=== PATIENT | female | born 1940 | race Caucasian/White ===

== ENCOUNTER 2017-12-17 09:32 | Emergency (ER) | payer MEDICARE, BC ==
[2017-12-17] MEDS ORDERED: HYDROcodone/Acetaminophen 5/325 mg Tablet ONE (10:12)
--- NOTE | 2017-12-17 11:19 | CT ---
CT PELVIS WITHOUT CONTRAST: Date: 12/17/17 HISTORY: Trauma. Fall. COMPARISON: None. FINDINGS: There are multiple hypodensities in the left lower abdomen, incompletely evaluated, although there is a comparison exam from 2001 which showed a similar appearance and this was from renal cystic origin. There is a chronic compression fracture at L4. There is narrowing at L3-4 and L4-5 spinous processes. There is circumferential disc bulge at L4-5 and L5-S1. No fracture is appreciated of the lower lumbar spine. No sacral fracture. Anterior and posterior colu mns are normal. There is narrowing of the pubic symphysis with erosions. There is what appears to be a healed left inferior pubic ramus fracture, series 2, image 63. No acute fracture is appreciated. No femoral head or neck fracture. Adequate acetabular coverage of the femor al heads. No fascial degloving injury. No muscle hematoma appreciated. IMPRESSION: 1. No acute fracture or malalignment of the pelvis. 2. Old left inferior pubic ramus fracture. 3. 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 4. Old L4 compression fracture. 5. Advanced degenerative disease between the L3-4 and L4-5 spinous processes. 6. Lobular hypodensities of the lower left hemiabdomen, which on the prior CT examination were felt to be renal cysts. 7. 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 POS: MELINA
== END 2017-12-17 11:00 | disposition home or self-care (01) ==
LOC: ERS 09:32
DX: S39.011A Strain of muscle, fascia and tendon of abdomen, initial encounter (principal); I10 Essential (primary) hypertension; M19.90 Unspecified osteoarthritis, unspecified site; K21.9 Gastro-esophageal reflux disease without esophagitis; K58.9 Irritable bowel syndrome, unspecified; Z87.891 Personal history of nicotine dependence; W19.XXXA Unspecified fall, initial encounter
CPT/HCPCS: 72192

== ENCOUNTER 2018-01-25 08:58 | Inpatient (IN) | payer MEDICARE, BC ==
[2018-01-25] MEDS ORDERED: Mag-Al 1200 mg/1200 mg/30 ML UDCUP ONE (09:16)
[2018-01-25] MEDS ORDERED: Lidocaine Viscous Sol 2% 15 ml UD Cup ONE (09:16)
[2018-01-25 09:20] LABS: #Basophils 0.1 thou/uL (0.0-0.2); #Eosinphils 0.1 thou/uL (0.0-0.7); #Lymphocytes 3.5 thou/uL (1.20-3.40); #Monocytes 0.9 thou/uL (0.11-0.59); #Neutrophils 4.2 thou/uL (1.40-6.50); %Basophils 1.5 % (0.0-1.0); %Eosinophils 1.6 % (0.0-10.0); %Lymphocytes 39.8 % (21.0-51.0); %Monocytes 9.8 % (0.0-10.0); %Neutrophils 47.3 % (42.0-75.0); Hemoglobin 14.1 g/dL (12.0-16.0); Mean Corpuscular HGB CONC 32.9 g/dL (32.0-36.0); Mean Corpuscular Hemoglobin 30.3 pg (27.0-31.0); Mean Corpuscular Volume 92.1 fl (81.0-99.0); Mean Platelet Volume 6.6 fL (7.4-10.4); Platelet Count 350 thou/uL (130-400); RBC Distribution Width 12.4 % (11.5-14.5); Red Blood Cell (RBC) Count 4.64 mill/uL (4.20-5.40); White Blood Cell (WBC) Count 8.9 thou/uL (4.8-10.8)
[2018-01-25 09:46] LABS: ALT (SGPT) 10 U/L (8-55); AST (SGOT) 17 U/L (5-34); Albumin 4.4 g/dL (3.4-4.8); Alkaline Phosphatase 132 U/L (40-150); BUN (Urea Nitrogen) 8 mg/dL (9.8-20.1); Bilirubin, Total 0.5 mg/dL (0.2-1.2); Calc. Creatinine Clearance 0 mL/min (70-130); Calcium 9.5 mg/dL (7.8-10.44); Carbon Dioxide 25 mmol/L (23-31); Estimated GFR-MDRD 66; Globulin 3.2 g/dL (2.4-3.5); Glucose 81 mg/dL (83-110); Lipase 15 U/L (8-78); Protein, Total 7.6 g/dL (6.0-8.3)
[2018-01-25 09:51] LABS: Troponin I Less than 0.010 ng/mL (< 0.028)
[2018-01-25] MEDS ORDERED: Nitroglycerin 2% Ointment 1 INCH/1 GM Packet ONE (10:05)
--- NOTE | 2018-01-25 10:10 | RAD ---
UPRIGHT PORTABLE CHEST 1 VIEW: HISTORY: A 77-year-old female with a history of chest pain. FINDINGS: Heart size is normal. There appear to be stable increased linear and interstitial markings and some linear parenchymal changes in the bases. Biapical pleural thickening. No confluent pneumonia or ove rt edema. Healed left rib fractures. IMPRESSION: Stable increased markings bilaterally and linear parenchymal changes in the bases. Stable biapical p leural thickening. Atherosclerosis of the aorta. No evidence of pneumonia or other active intrathor acic disease. POS: ASAEL
[2018-01-25] MEDS ORDERED: Fentanyl 100 MCG/2 ML VIAL ONE (11:55)
[2018-01-25] MEDS ORDERED: Ondansetron HCl/PF 4 MG/2 ML Vial IVP PRN (12:43)
[2018-01-25] MEDS ORDERED: Fentanyl 100 MCG/2 ML VIAL SLOW IVP PRN (12:43)
[2018-01-25] MEDS ORDERED: Sodium Chloride 0.9% 1,000 ML IV SCH ×2 (13:00→14:30)
[2018-01-25] MEDS ORDERED: Promethazine HCl 25 MG/ML VIAL IM/IV PRN (13:11)
[2018-01-25] MEDS ORDERED: hydrALAZINE 20 MG/ML VIAL SLOW IVP PRN ×2 (13:11→18:08)
[2018-01-25 13:20] LABS: Troponin I Less than 0.010 ng/mL (< 0.028)
[2018-01-25 13:24] VITALS: BMI 20.2
[2018-01-25] MEDS ORDERED: Prevnar 13-Val Conj/PF 0.5 ML SYRINGE IM ONE (13:45)
[2018-01-25] MEDS ORDERED: Acetaminophen 325 MG TAB PO PRN (15:15)
[2018-01-25] MEDS ORDERED: Nitroglycerin 0.4 MG TAB (25 Tab Bottle) PO PRN (15:15)
--- NOTE | 2018-01-25 15:25 | CT ---
CT BRAIN NONCONTRAST: Date: 01/25/18 HISTORY: 77-year-old female with altered mental status, hypertension, and gait abnormality. FINDINGS: There is no midline shift or any other mass effect. There is no evidence of acute intracranial hemor rhage, large cortical infarct, obstructive hydrocephalus, or extraaxial fluid collection. The calvar ium is intact. IMPRESSION: No acute intracranial findings. jn [] POS: [facility]
[2018-01-25] MEDS ORDERED: NS 0.9% w/ 40 MEQ KCL 1,000 ML IV SCH (15:30)
--- NOTE | 2018-01-25 15:31 | CON ---
DATE OF CONSULTATION: 01/25/2018 REASON FOR CONSULTATION: Chest pain. Please see Dr. Leslie's full consultation for details. Briefly, Ms. Mcnair is a very pleasant 77-year-old woman, no previous history of underlying coronary artery disease. She does have a remote tobacco history where she quit all tobacco products 3 years a go. She states she had acute onset chest pain. The pain has been constant, although improved over t he last 5 hours. This occurred while driving. She has no previous history of underlying coronary ar he disease. She has a previous history of WPW. CK and troponin so far have been negative. PHYSICAL EXAMINATION: GENERAL: Mildly slurred speech. VITAL SIGNS: Blood pressure 180/70, pulse 85, respirations 20. NEUROLOGIC: The patient is alert and oriented times 3 with no focal neurologic deficits. HEENT: Sclerae without icterus. Mouth has moist mucous membranes with normal pallor. NECK: No JVD. Carotid upstroke brisk. No bruits bilaterally. LUNGS: Clear to auscultation with unlabored respirations. BACK: No scoliosis or kyphosis. CARDIAC: Regular rate and rhythm with normal S1 and S2. No S3 or S4 noted. No significant rubs, mu rmurs, thrills, or gallops noted throughout the precordium. PMI is not displaced. There is no steffany ternal heave. ABDOMEN: Soft, nontender, nondistended. No peritoneal signs present. No hepatosplenomegaly. No ab normal striae. EXTREMITIES: 2+ femoral and 2+ dorsalis pedis pulses. No cyanosis, clubbing, or edema. SKIN: No gross abnormalities. PERTINENT LABORATORY DATA: Sodium 123, potassium 3.2, chloride 90. EKG: Normal sinus rhythm, nonsp ecific ST-T-wave changes. IMPRESSION: 1. Atypical chest pain. 2. Hyponatremia. 3. Mental status changes. RECOMMENDATIONS: Current etiology to her chest pain is unknown. Her symptoms are not felt to be wor se with deep breath. They are sharp in nature and constant. At this point, her CK, troponin, and EK G are negative. We will continue close observation. We will continue serial CKs and troponins. Ellen ology to a low sodium is unknown. Mental status change is likely related to phenergan. We will obta in a CT scan of the head for reassurance. Further recommendations on potassium and magnesium per [facility] team. May need a noninvasive stress study prior to discharge if symptoms continue.
--- NOTE | 2018-01-25 15:41 | HP ---
PRIMARY CARE PROVIDER: Shelley Pulliam M.D. CHIEF COMPLAINT: Chest pain. HISTORY OF PRESENT ILLNESS: Ms. Mcnair is a pleasant 77-year-old lady, who was seen at [facility] on 01/25/2018. She reports that, around 8:45 a.m., she was on her way to see her pain specialist. At that time, she developed pain over the left side of her chest. It was sharp, also heaviness like, 10/10, nonradiat ing, not accompanied by shortness of breath or nausea. She reports that it felt like indigestion as well as burning sensation. The pain improved gradually with time. She denies any recent [place] travel. She cannot recall any aggravating or relieving factors for the pain. She reports that she has been feeling generalized weakness over the last few days. REVIEW OF SYSTEMS: All other systems reviewed and found to be negative. 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 PAST SURGICAL HISTORY: None. SOCIAL HISTORY: The patient denies tobacco use, alcohol use, or recreational drug use. FAMILY HISTORY: Significant for an uncle with heart disease. ALLERGIES: MORPHINE. CURRENT MEDICATIONS: She takes medications for hypertension, but is unable to recall their names. T his will need to be clarified. PHYSICAL EXAMINATION: GENERAL: On examination, Ms. Mcnair is awake and alert, in mild distress. VITAL SIGNS: Blood pressure is 159/68, pulse is 79. She is breathing at rate of 18 and saturating 9 8% on room air. She is afebrile. EYES: No scleral icterus. No conjunctival pallor. ENT: Moist mucosal membranes. No oropharyngeal erythema or exudates. NECK: Supple, nontender, normal range of movement, trachea is midline. RESPIRATORY: Accessory muscles of breathing are not active. Chest wall movements are symmetric bila terally. LUNGS: Clear to auscultation without wheeze, rhonchi, or crepitations. CARDIOVASCULAR: S1 and S2 are heard, regular. Peripheral pulses palpable. No carotid bruit, no per icardial rub. ABDOMEN: Soft, nontender, bowel sounds heard, no hepatomegaly, no splenomegaly. NEUROLOGIC: Cranial nerves II-XII are intact. Deep tendon reflexes are 2+. MUSCULOSKELETAL: Power is 5/5 in all 4 extremities. Normal range of movement at all major extremity joints. LYMPHATIC: No cervical lymphadenopathy. SKIN: No rashes or subcutaneous nodules. PSYCHIATRIC: Normal mood, normal affect. The patient is oriented to person, place, and time. LABORATORY DATA: Ms. Mcnair's labs and investigations were reviewed. I reviewed her electrocardiogr am, which shows normal sinus rhythm, no ST changes to suggest an acute coronary syndrome. I also rev iewed her chest x-ray, which does not show any pulmonary infiltrates. She has an unremarkable CBC, h yponatremia with sodium 123, hypokalemia with potassium 3.2, normal creatinine, normal liver profile, and normal troponin I. ASSESSMENT AND PLAN: Ms. Mcnair is a pleasant 77-year-old lady, who was seen at [facility] on 01/25/2018. Her problem list includes: 1. Chest pain: She will be admitted to the hospital for further management. Given her ongoing ches t pain, we will consult Cardiology Service for opinion and help with management. We will recheck her troponin level. 2. Hyponatremia: Etiology unclear. It is possible that she is taking a thiazide diuretic, but she does not recall the name of the medication. We will initiate workup for hyponatremia and provide gen tle hydration and recheck sodium level. 3. Hypokalemia: Replace potassium, recheck potassium level. 4. Hypertension: Monitor vital signs. Titrate antihypertensives as needed. 5. Gastroesophageal reflux disease: Stable. 6. Irritable bowel syndrome. Stable. Many thanks for allowing me to participate in your patient's care. Please feel free to contact me wi th any questions or concerns. LEVEL OF RISK: High. LEVEL OF COMPLEXITY: High.
[2018-01-25 16:01] LABS: Anion Gap 12 mmol/L (10-20); BUN (Urea Nitrogen) 7 mg/dL (9.8-20.1); Calc. Creatinine Clearance 55 mL/min (70-130); Calcium 9.5 mg/dL (7.8-10.44); Carbon Dioxide 24 mmol/L (23-31); Chloride 106 mmol/L (98-107); Estimated GFR-MDRD 75; Glucose 100 mg/dL (83-110); Magnesium 2.1 mg/dL (1.6-2.6); Potassium 3.6 mmol/L (3.5-5.1); Sodium 138 mmol/L (136-145)
[2018-01-25 16:12] LABS: Troponin I Less than 0.010 ng/mL (< 0.028)
[2018-01-25] MEDS ORDERED: Dextrose 5% in Water 1,000 ML IV SCH ×2 (16:45→18:00)
--- NOTE | 2018-01-25 17:05 | CON-2 ---
DATE OF CONSULTATION: 01/25/2018 CONSULTING SERVICE: Cardiology with Dr. Daniels. HISTORY OF PRESENT ILLNESS: Ms. Mcnair is a 77-year-old female with hypertension, hx/o WPW syndrome and an uncertain history of atrial fibrillation , presented to the hospital with chest pain. Chest pain started today on the way to her primary care doctor's office for foot pain. States at one point chest pain was 10/10, mostly in the left side of her chest. There was no associated nausea, vomiting, diaphoresis, lightheadedness, blurry vision. She states she has never had a history of this pain in the past. She describes the pain on the left side a sharp, not radiating to jaw or left arm. In the emergency room, she was given nitro and fentanyl which have relieved her symptoms to a 3/10 pain currently. She is scheduled to receive a dose of hydralazine for hypertensive urgency. PHYSICAL EXAMINATION: VITAL SIGNS: Blood pressure 186/83, pulse 85, oxygen 94%, temperature 97.7. GENERAL: Thin elderly female in no acute distress. CARDIOVASCULAR: Regular rate and rhythm. No murmurs, rubs or gallops. Pulses bounding in extremities. PULMONARY: Lungs, CTA. No wheezes, rhonchi, or crackles on exam. Good air flow. NEUROLOGIC: No focal deficits. The patient A&O x3. PERRLA. PERTINENT LABORATORY DATA: Sodium 123, potassium 3.2. Troponins negative x2. ASSESSMENT AND PLAN: 1. Chest pain r/o: Her CP is unlikely true angina. Negative troponins, no indicative EKG findings to suggest cardiac in nature. For now, we will treat conservatively with NSAIDs and close monitoring. She may require stress testing tomorrow, however we will monitor her symptoms overnight and re-evaluate tomorrow. 2. Hypertensive urgency: She has had to receive 1 dose of hydralazine, we will continue to monitor and give blood pressure medications as needed. 3. Hyponatremia: now on normal saline per primary team. 4. Hyperkalemia: per primary team. 5. Gytlj-Qdpacpfrj-Oylel syndrome: Based on patient's EKG findings today, she does not meet criteria for Seuuh-Xkkctomkg-Pdnnq. I have discussed this case in detail with Dr. Jeremiah WILSON
[2018-01-25 17:08] LABS: Sodium 138 mmol/L (136-145)
[2018-01-25 17:25] LABS: Thyroid Stimulating Hormone 1.1501 uIU/mL (0.35-4.94)
[2018-01-25] MEDS ORDERED: Potassium Chloride 20 MEQ TAB PO SCH (18:00)
[2018-01-25 18:13] LABS: Sodium 138 mmol/L (136-145)
[2018-01-25 18:14] LABS: Chloride 102 mmol/L (98-107); Potassium 3.8 mmol/L (3.5-5.1)
[2018-01-25 18:15] LABS: Anion Gap 15 mmol/L (10-20)
[2018-01-25 21:26] LABS: Sodium 135 mmol/L (136-145)
--- NOTE | 2018-01-26 00:43 | CON ---
DATE OF CONSULTATION: 01/25/2018 NEPHROLOGY CONSULTATION REASON FOR CONSULTATION: Hyponatremia. TIME OF CONSULTATION: 4:00 p.m. HISTORY OF PRESENT ILLNESS: A 77-year-old female who presented with chest pain as well as head pain, was noted to have a sodium of 123 and I was called at 4:00 p.m. A repeat sodium ordered was 138. A fter reviewing and talking with the patient, the patient denies headache, numbness, tingling or weakn ess or denies any other symptoms of hyponatremia or excessive fluid intake. Repeat sodium was done o n the same lab at 9:30 p.m. and was 138. PAST MEDICAL HISTORY: Significant for hypertension, GERD, WPW, history of lymphoma, irritable bowel syndrome in remission. SOCIAL HISTORY: No alcohol or drug use. FAMILY HISTORY: Negative for ESRD. ALLERGIES: Reviewed. HOME MEDICATIONS: Reviewed. REVIEW OF SYSTEMS: A 15-point review of systems was performed and negative, except all noted above. GENERAL: Weakness-. HEAD: Headache-. NECK: No swelling or lumps. NOSE: No epistaxis or discharg e. EYES: No diplopia or pain. RESPIRATORY: Dyspnea-. CARDIOVASCULAR: Chest pain-. GASTROINTEST INAL: Nausea-. 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 MUSCULOSKELETAL: No joint pain. NEUROPSYCHIATIC SYSTEMS: No suicidal ideation. No ideation. SKIN: Denies any rash or ulcer. CONSTITUTIONAL: No fever or chi lls. OBJECTIVE: VITAL SIGNS: Afebrile, pulse 70, breathing 16, blood pressure 130/79. GENERAL APPEARANCE AND MENTAL STATUS: Fair. Awake, alert, in no acute distress. HEAD/NECK: Normocephalic. Atraumatic. EYES: EOMI. No deformity. EARS: Clear. No ulcers. NOSE: Intact. No lesions. MOUTH: Clear. No discharge. THROAT: Clear. No exudate. LUNGS: Clear. No crackles. CARDIAC: S1, S2. No rub. ABDOMEN: Benign. BS+. GENITALIA/RECTUM: Grace absent. BACK/EXTREMITIES: Edema 0+. Ulcer-. NEUROLOGICAL: Alert and motor intact. SKIN: Rash-. Bruise-. LYMPHATICS: Edema-. Ulcer-. LABORATORY: Sodium 138. ASSESSMENT AND RECOMMENDATIONS: 1. Hyponatremia, most likely to the lab incorrect value. 2. 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 I will sign off on this patient. Pl ease follow closely. No need for IV fluids.
[2018-01-26 05:08] LABS: #Eosinphils 0.1 thou/uL (0.0-0.7); #Monocytes 0.6 thou/uL (0.11-0.59); #Neutrophils 3.7 thou/uL (1.40-6.50); %Basophils 0.5 % (0.0-1.0); %Eosinophils 0.8 % (0.0-10.0); %Lymphocytes 39.9 % (21.0-51.0); %Monocytes 8.7 % (0.0-10.0); %Neutrophils 50.1 % (42.0-75.0); Hemoglobin 13.6 g/dL (12.0-16.0); Mean Corpuscular HGB CONC 32.9 g/dL (32.0-36.0); Mean Corpuscular Hemoglobin 30.1 pg (27.0-31.0); Mean Corpuscular Volume 91.6 fl (81.0-99.0); Mean Platelet Volume 6.8 fL (7.4-10.4); Platelet Count 332 thou/uL (130-400); RBC Distribution Width 12.4 % (11.5-14.5); Red Blood Cell (RBC) Count 4.53 mill/uL (4.20-5.40); White Blood Cell (WBC) Count 7.4 thou/uL (4.8-10.8)
[2018-01-26 05:20] LABS: Anion Gap 10 mmol/L (10-20); BUN (Urea Nitrogen) 9 mg/dL (9.8-20.1); Calc. Creatinine Clearance 56 mL/min (70-130); Calcium 9.5 mg/dL (7.8-10.44); Carbon Dioxide 23 mmol/L (23-31); Chloride 107 mmol/L (98-107); Estimated GFR-MDRD 76; Glucose 95 mg/dL (83-110); Potassium 3.6 mmol/L (3.5-5.1); Sodium 136 mmol/L (136-145)
[2018-01-26] MEDS ORDERED: Aspirin 325 MG TAB PO SCH (09:00)
[2018-01-26] MEDS ORDERED: Amlodipine 5 MG TAB PO SCH (09:00)
--- NOTE | 2018-01-26 12:55 | PDOC.PN ---
- Subjective Encounter Start Date: 01/26/18 Encounter Start Time: 09:00 - Objective Vital Signs & Weight: Vital Signs (12 hours) Temp Pulse Resp BP Pulse Ox 01/26/18 08:45 98.1 F 78 14 136/65 94 L 01/26/18 04:00 97.9 F 82 18 149/77 H 92 L Weight Weight 121 lb 4 oz I&O: 01/25/18 01/26/18 01/27/18 06:59 06:59 06:59 Intake Total 240 Output Total 500 Balance -260 Result Diagrams: 01/26/18 04:40 01/26/18 04:40 Dx/Plan - Plan * .
[2018-01-26] MEDS ORDERED: ADENOSINE 60 MG/20 ML VIAL ONE (15:04)
--- NOTE | 2018-01-26 15:41 | NM ---
NUCLEAR MEDICINE CARDIAC PERFUSION EXAMINATION WITH EJECTION FRACTION 01/26/18 HISTORY: 77-year-old female with chest pain and Ltuuc-Zhzgkdvrb-Jbhop syndrome, hypertension. TECHNIQUE: A single day nuclear medicine cardiac perfusion examination was performed. Rest images were obtained using 9 millicuries of technetium 99m Sestamibi. Stress images were obtained using 27 millicuries of technetium 99m Sestamibi and adenosine. FINDINGS: Tomographic images show no fixed or reversible perfusion defects. Gated images show normal wall motio n with an ejection fraction of greater than 70%. EDV is 20 mL. LHR is 0.4. TID is 1.8. IMPRESSION: No evidence of ischemia. POS: ASAEL
--- NOTE | 2018-01-26 15:48 | PRG ---
DATE OF SERVICE: 01/26/2018 SUBJECTIVE: Ms. Mcniar feels much better today. She is no longer having issues with mental status c hanges. This is likely related to Phenergan. Her chest pain is much better. OBJECTIVE: GENERAL: Patient is a pleasant female who is in no acute distress. The patient appears her stated age. VITAL SIGNS: Blood pressure 149/77, pulse 82, temperature 97.1. NEUROLOGIC: The patient is alert and oriented times 3 with no focal neurologic deficits. HEENT: Sclerae without icterus. Mouth has moist mucous membranes with normal pallor. NECK: No JVD. Carotid upstroke brisk. No bruits bilaterally. LUNGS: Clear to auscultation with unlabored respirations. BACK: No scoliosis or kyphosis. CARDIAC: Regular rate and rhythm with normal S1 and S2. No S3 or S4 noted. No significant rubs, mu rmurs, thrills, or gallops noted throughout the precordium. PMI is not displaced. There is no steffany ternal heave. ABDOMEN: Soft, nontender, nondistended. No peritoneal signs present. No hepatosplenomegaly. No ab normal striae. EXTREMITIES: 2+ femoral and 2+ dorsalis pedis pulses. No cyanosis, clubbing, or edema. SKIN: No gross abnormalities. IMAGING: Noninvasive stress study negative for ischemia with LVEF greater than 70%. IMPRESSION: 1. Chest pain. 2. Hypertension. RECOMMENDATIONS: Ms. Mcnair's blood pressure has not improved. Her recent stress study was negative for ischemia. Her sodium is also improved. From my standpoint, would be okay for discharge to home with close outpatient followup.
--- NOTE | 2018-01-26 16:25 | PDOC.PN ---
- Subjective Encounter Start Date: 01/26/18 Encounter Start Time: 11:00 Pt seen for followup re: chest pain. Reports pain is better. No nausea or vomiting. - Objective MAR Reviewed: Yes Vital Signs & Weight: Vital Signs (12 hours) Temp Pulse Resp BP Pulse Ox 01/26/18 08:45 98.1 F 78 14 136/65 94 L Weight Weight 121 lb 4 oz I&O: 01/25/18 01/26/18 01/27/18 06:59 06:59 06:59 Intake Total 240 Output Total 500 Balance -260 Result Diagrams: 01/26/18 04:40 01/26/18 04:40 EKG Reviewed by me: Yes (Tele: NSR) Phys Exam - Physical Examination Constitutional: NAD HEENT: moist MMs Neck: supple Respiratory: clear to auscultation bilateral Cardiovascular: RRR Gastrointestinal: soft Neurological: moves all 4 limbs Psychiatric: normal affect Dx/Plan (1) Chest pain Code(s): R07.9 - CHEST PAIN, UNSPECIFIED Status: Acute (2) GERD (gastroesophageal reflux disease) Code(s): K21.9 - GASTRO-ESOPHAGEAL REFLUX DISEASE WITHOUT ESOPHAGITIS Status: Chronic Comment: stable (3) HTN (hypertension) Code(s): I10 - ESSENTIAL (PRIMARY) HYPERTENSION Status: Chronic Comment: monitor vital signs, titrate antihypertensives as needed (4) Hyponatremia Code(s): E87.1 - HYPO-OSMOLALITY AND HYPONATREMIA Status: Resolved Comment: Not true hyponatremia, lab error (5) Hypokalemia Code(s): E87.6 - HYPOKALEMIA Status: Resolved - Plan * . Review of Systems - Review of Systems Respiratory: negative: Cough, Dry, Shortness of Breath, Hemoptysis, SOB with Excertion, Pleuritic Pain, Sputum, Wheezing Cardiovascular: negative: chest pain, palpitations, orthopnea, paroxysmal nocturnal dyspnea, edema, light headedness - Medications/Allergies Allergies/Adverse Reactions: Allergies Allergy/AdvReac Type Severity Reaction Status Date / Time morphine Allergy Verified 01/25/18 13:19 Medications: Current Medications Acetaminophen (Tylenol) 650 mg PO Q4H PRN PRN Reason: Headache/Fever or Pain Amlodipine Besylate (Norvasc) [address] [facility] Aspirin (Aspirin) [address] [facility] Fentanyl (Sublimaze) 12.5 mcg SLOW IVP Q6H PRN PRN Reason: Pain Hydralazine HCl (Apresoline) 10 mg SLOW IVP Q6H PRN PRN Reason: SBP Greater Than 170 Last Admin: 01/25/18 13:43 Dose: 10 mg Hydralazine HCl (Apresoline) 10 mg SLOW IVP Q6H PRN PRN Reason: SBP Greater Than 170 Nitroglycerin (Nitrostat) 0.4 mg PO Q5MIN PRN PRN Reason: Chest Pain Ondansetron HCl (Zofran) 4 mg IVP Q6H PRN PRN Reason: Nausea/Vomiting Last Admin: 01/25/18 18:29 Dose: 4 mg Pantoprazole Sodium (Protonix) 40 mg PO DAILY [facility] Promethazine HCl (Phenergan) 25 mg IM/IV Q6H PRN PRN Reason: Nausea/Vomiting Last Admin: 01/25/18 13:43 Dose: 25 mg Sodium Chloride (Flush - Normal Saline) 10 ml IVF Q12HR [facility] Last Admin: 01/25/18 21:10 Dose: 10 ml Sodium Chloride (Flush - Normal Saline) 10 ml IVF PRN PRN PRN Reason: Saline Flush
[2018-01-26 17:09] VITALS: BP 145/67; TEMP 97.7
--- NOTE | 2018-01-27 00:46 | DIS ---
PRIMARY CARE PROVIDER: Shelley Pulliam M.D. DATE OF ADMISSION: 01/25/2018 DATE OF DISCHARGE: 01/26/2018 DISCHARGE DIAGNOSIS: Chest pain. CONDITION OF PATIENT ON THE DAY OF DISCHARGE: Stable. I assessed Ms. Mcnair on the day of discharge . Please refer to my daily progress note for further information regarding this face to [id number] encounter. DISCHARGE MEDICATIONS: Amlodipine 5 mg daily, pantoprazole 40 mg daily, and tramadol p.r.n. CONSULTATIONS DURING THIS HOSPITALIZATION: Nephrology, Dr. Ortiz and Cardiology, Dr. Daniels. HOSPITAL COURSE: Ms. Mcnair is a pleasant 77-year-old lady who was admitted to [facility] on 01/25/2018. She was admitted for chest pain as well as hyponatremia, with reported s odium level of 123 at 9:13 a.m. At 3:36 p.m., her sodium level was rechecked and was found to be 138 . She also had a normal serum osmolality. Sodium and serum osmolality were run again by the lab on the sample collected at 0913 hours. It was found that her sodium level was in fact 138 at 0913 hours as well. Nephrology Service was consulted initially because of worry over rapid overcorrection. Th ey signed off once it was found out that the initial lab value was an error. In terms of the chest pain itself, she had normal troponins. She also had a normal D-dimer. She und erwent nuclear stress test, and was found to have no evidence of ischemia. Her left ventricular ejec tion fraction was greater than 70%. TID was 1.8. She is being discharged home after clearance from Cardiology Service. Her blood pressure was elevated during this hospitalization. She is advised to have her blood pressu re and heart rate checked 3 times a day and show the readings to her primary care provider. I should note that her chest pain resolved during this hospitalization. Many thanks for allowing me to participate in your patient's care. Please feel free to contact me wi th any questions or concerns. DISCHARGE DESTINATION: Home. TOTAL AMOUNT OF TIME SPENT COORDINATING THIS DISCHARGE: 33 minutes. ADDENDUM: Mr. Mcnair had paroxysmal atrial tachycardia on monitor and storage bin tender prior to discharge. She will need to follow up as outpatient with Cardiology Service for the same.
== END 2018-01-26 18:45 | disposition home or self-care (01) | DRG 313 ==
LOC: ERS 08:58 → 2NO 10:07
PROVIDERS: ADMIT Internal Medicine; ATTEND Internal Medicine
DX: R07.89 Other chest pain (principal); K21.9 Gastro-esophageal reflux disease without esophagitis; K58.9 Irritable bowel syndrome, unspecified; I10 Essential (primary) hypertension; I45.6 Pre-excitation syndrome; Z88.5 Allergy status to narcotic agent; Z79.899 Other long term (current) drug therapy; E87.6 Hypokalemia; I16.0 Hypertensive urgency; Z87.891 Personal history of nicotine dependence
CPT/HCPCS: 36415; 70450; 71045; 78452; 80048; 80053; 82436; 82533; 82553; 82570; 83690; 83735; 83930; 83935; 84133; 84300; 84443; 84484; 85025; 85379; 93005; 93017; 94760; 96361; 96374; A4216; A9500; J0153; J0360; J2405; J2550; J3010

== ENCOUNTER 2018-12-09 14:07 | Outpatient (CLI) | payer MEDICARE, BC ==
--- NOTE | 2018-12-09 15:51 | ULT ---
VENOUS DOPPLER ULTRASOUND OF THE RIGHT LOWER EXTREMITY: 12/09/18 HISTORY: Right lower extremity edema and pain. TECHNIQUE: Klein scale ultrasound with color flow and spectral doppler imaging of the deep venous system of the r ight lower extremity was performed. FINDINGS: There is good flow, compression, and augmentation noted in the right common femoral, femoral, deep fe moral, popliteal, posterior tibial and greater saphenous veins. IMPRESSION: No evidence of DVT in the right lower extremity. POS: C
== END 2018-12-09 14:08 | disposition home or self-care (01) ==
LOC: ULT 14:07
PROVIDERS: ATTEND Family Medicine
DX: M79.661 Pain in right lower leg (principal)

== ENCOUNTER 2019-10-04 12:52 | Outpatient (CLI) | payer MEDICARE, BC ==
[2019-10-04] MEDS ORDERED: Iopamidol-370 76% 500 ML 1 ML ONE (13:34)
--- NOTE | 2019-10-04 13:54 | CT ---
EXAM: CT of the chest with contrast CT of the abdomen and pelvis with contrast HISTORY: Rectal cancer staging exam COMPARISON: None TECHNIQUE: 1. Multiple contiguous axial images were obtained in a CT the chest with contrast. Coronal and sagitt al reformats were performed. 2. Multiple contiguous axial images were obtained and a CT of the abdomen and pelvis with contrast. O ral contrast was administered. Coronal and sagittal reformats were performed. FINDINGS: CT CHEST: HEART: Normal in size without focal cardiac abnormality MEDIASTINUM: No hilar or mediastinal lymphadenopathy. LUNGS: No focal infiltrates, nodules, or masses. Scarring is seen in both lung apices. PLEURAL SPACE: No pneumothorax or pleural effusion. CHEST WALL SOFT TISSUES: Unremarkable CT ABDOMEN/PELVIS: ABDOMEN: LIVER: Subcentimeter hypodensity is too small to characterize but likely represents a cyst. BILE DUCTS: Normal caliber. GALLBLADDER: No calcified gallstones. Normal caliber wall. PANCREAS: within normal limits. SPLEEN: within normal limits. ADRENALS: within normal limits. KIDNEYS: Innumerable bilateral renal cysts measuring up to 4.9 cm in size. PELVIS: REPRODUCTIVE ORGANS: No pelvic masses. URETERS: within normal limits. BLADDER: within normal limits. PERITONEUM: No ascites or free air, no fluid collection. BOWEL: Normal caliber. No obvious rectal mass is seen, but evaluation is limited with lack of contras t within the left colon. Scattered diverticula in the colon. MESENTERY AND RETROPERITONEUM: No enlarged mesenteric or retroperitoneal lymph nodes. VESSELS: Atherosclerotic calcifications. ABDOMINAL WALL: within normal limits. OSSEOUS STRUCTURES: Degenerative changes in the spine. No suspicious osseous lesions identified. IMPRESSION: 1. No obvious rectal mass identified but the colon is decompressed and not filled with enteric contra st limiting evaluation of this region. 2. No evidence of metastatic disease. 3. Renal cysts 4. Hepatic cyst
== END 2019-10-04 12:53 | disposition home or self-care (01) ==
LOC: BICCT 12:52
PROVIDERS: ATTEND Internal Medicine
DX: K62.89 Other specified diseases of anus and rectum (principal); N28.1 Cyst of kidney, acquired; K76.89 Other specified diseases of liver
CPT/HCPCS: 71260; 74177; Q9967

== ENCOUNTER 2019-10-28 06:03 | Day surgery (SDC) | payer MEDICARE, BC ==
[2019-10-27 10:35] VITALS: BMI 17.3
[2019-10-28] MEDS ORDERED: ceFOXitin 2 GM/50 ML Duplex BAG ONE (06:21)
[2019-10-28] MEDS ORDERED: Fentanyl 100 MCG/2 ML VIAL ONE (06:34)
[2019-10-28] MEDS ORDERED: Lidocaine 2% w/Epinephrine 1:200K 20 ML VIAL ONE (06:42)
[2019-10-28] MEDS ORDERED: Bupivacaine 0.25% HCL 30 ML VIAL ONE (06:42)
[2019-10-28 06:48] LABS: #Basophils 0.1 thou/uL (0.0-0.2); #Eosinphils 0.2 thou/uL (0.0-0.7); #Lymphocytes 3.8 thou/uL (1.20-3.40); #Monocytes 0.8 thou/uL (0.11-0.59); #Neutrophils 3.7 thou/uL (1.40-6.50); %Basophils 1.1 % (0.0-1.0); %Eosinophils 2.4 % (0.0-10.0); %Lymphocytes 43.7 % (21.0-51.0); %Monocytes 9.4 % (0.0-10.0); %Neutrophils 43.4 % (42.0-75.0); Hemoglobin 11.4 g/dL (12.0-16.0); Mean Corpuscular HGB CONC 31.4 g/dL (32.0-36.0); Mean Corpuscular Hemoglobin 27.4 pg (27.0-31.0); Mean Corpuscular Volume 87.2 fL (78.0-98.0); Mean Platelet Volume 7.7 fL (7.4-10.4); Platelet Count 333 thou/uL (130-400); RBC Distribution Width 13.6 % (11.5-14.5); Red Blood Cell (RBC) Count 4.17 mill/uL (4.20-5.40); White Blood Cell (WBC) Count 8.6 thou/uL (4.8-10.8)
[2019-10-28 07:06] LABS: Anion Gap 12 mmol/L (10-20); BUN (Urea Nitrogen) 10 mg/dL (9.8-20.1); Calc. Creatinine Clearance 44 mL/min (70-130); Calcium 9.4 mg/dL (7.8-10.44); Carbon Dioxide 27 mmol/L (23-31); Chloride 105 mmol/L (98-107); Estimated GFR-MDRD 71; Glucose 83 mg/dL (83-110); Potassium 3.6 mmol/L (3.5-5.1); Sodium 140 mmol/L (136-145)
[2019-10-28] MEDS ORDERED: Lidocaine 2% Jelly 5 ML TUBE ONE (08:05)
--- NOTE | 2019-10-28 10:32 | PDOC.OP ---
Operative Note - Operative Note Operative Note: PROCEDURE: Transanal escision of rectal polyp SURGEON: Seb Mcconnell M.D. DATE: 10/28/2019 PREOPERATIVE DIAGNOSIS: Rectal polyp POSTOPERATIVE DIAGNOSIS: Rectal polyp HISTORY: Patient with large rectal polyp encraoching on the anal verge unable to be removed endoscopically. 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 Transanal excision was recommended. PROCEDURE IN DETAIL: After informed consent was obtained and approprate preoperative antibiotics were administered the patient was taken to the operating room and general anesthesia administered. She was placed in lithotomy position and prepped and draped sterilely. Anoscopy was carried out and local anestheis infused to the tissues surrounding the polyp. It extended approximately one third of the circumference of the anal canal just above the dentate line but did not extend more than a couple centimeters proximally, and was soft and protuberant with a long narrow base oriented transversely across the right lower rectum. The polyp was excised in its entirety down to the underlying muscle although portions of the soft polyp detached during the procedure due to traction. Hemostasis was obtained by electrocautery and the mucosa and submucosa closed transversely with a running locking chromic suture without tension and with excellent technical result. Additional local anesthesia was infused for postoperative pain control. Gelfoam with lidocaine gel plug was placed into the anal canal and secured with peripad and mesh panties. Estimated blood loss minimal. Specimen is rectal polyp, grossly completely excised but fragmented.
[2019-10-28] MEDS ORDERED: EPHEDRINE 25 MG/5 ML SYRINGE ONE (10:57)
[2019-10-28] MEDS ORDERED: Lidocaine 1% PF 5 ML VIAL ONE (10:57)
[2019-10-28] MEDS ORDERED: Succinylcholine Chloride 20 MG/ML 10 ml SYRINGE FS ONE (10:57)
[2019-10-28] MEDS ORDERED: Ondansetron PF 4 MG/2 ML Vial ONE (10:57)
[2019-10-28] MEDS ORDERED: PROPOFOL 200 MG/20 ML VIAL ONE (10:57)
[2019-10-28] MEDS ORDERED: Rocuronium Bromide 10 MG/ML (10ML VIAL) ONE (10:57)
[2019-10-28] MEDS ORDERED: Dexamethasone 20 MG/5 ML VIAL ONE (10:57)
== END 2019-10-28 09:20 | disposition home or self-care (01) ==
LOC: SDC 06:03
PROVIDERS: ATTEND Surgery
PROC: 0DBP7ZX Excision of Rectum, Via Natural or Artificial Opening, Diagnostic (ICD-10-PCS; principal; 2019-10-28)
DX: D12.8 Benign neoplasm of rectum (principal); I45.6 Pre-excitation syndrome; I48.91 Unspecified atrial fibrillation; Z87.891 Personal history of nicotine dependence; Z79.899 Other long term (current) drug therapy; Z88.5 Allergy status to narcotic agent; Z88.8 Allergy status to other drugs, medicaments and biological substances
CPT/HCPCS: 36415; 80048; 85025; 88305; 93005; 93010; J0694; J1100; J2001; J2405; J2704; J3010; S0020

== ENCOUNTER 2019-11-29 10:24 | Emergency (ER) | payer MEDICARE, BC ==
--- NOTE | 2019-11-29 11:19 | RAD ---
XR Ribs Rt>=2 view STANDARD History: Injury. Fall Comparison: CT examination September 2019 for reference Findings: Lungs are mildly hyperinflated. No acute displaced right rib fracture. No right-sided pneum othorax or significant effusion. Right humeral head tendon suture anchors. Old left rib fractures. Impression: No acute displaced right rib fracture.
--- NOTE | 2019-11-29 12:40 | RAD ---
Right shoulder 3 views HISTORY: Shoulder injury. FINDINGS: There is elevation of the humerus in relation to the glenoid. Acromioclavicular alignment i s maintained. Metallic anchors aspect of the humeral head from prior surgery. No acute fracture, dislocation, or aggressive osseous erosions. IMPRESSION: Chronic rotator cuff tear. Postoperative changes. No acute osseous abnormalities are demonstrated.
== END 2019-11-29 13:15 | disposition home or self-care (01) ==
LOC: ERS 10:24
DX: S20.211A Contusion of right front wall of thorax, initial encounter (principal); S40.011A Contusion of right shoulder, initial encounter; I10 Essential (primary) hypertension; K21.9 Gastro-esophageal reflux disease without esophagitis; Z86.73 Personal history of transient ischemic attack (TIA), and cerebral infarction without residual deficits; Z87.891 Personal history of nicotine dependence; Z79.899 Other long term (current) drug therapy; W18.09XA Striking against other object with subsequent fall, initial encounter

== ENCOUNTER 2020-07-06 09:21 | Outpatient (CLI) | payer MEDICARE, BC ==
--- NOTE | 2020-07-06 10:08 | RAD ---
XR Knee Lt 4 View STANDARD HISTORY: Left knee pain FINDINGS: No fracture or dislocation is identified. Bones are osteopenic. Mild degenerative changes present
--- NOTE | 2020-07-06 10:13 | MRI ---
MRI Lumbar Spine WO Con History: Low back pain Comparison: MRI lumbar spine August 2015 Findings: Aortic contour is nonaneurysmal. Numerous bilateral large renal cysts. No retroperitoneal p eriaortic adenopathy. Similar appearance of the L1 burst fracture with 50-60% anterior height loss and retropulsion approxi mately 3 mm. Mild ventral CSF space effacement this level. Old remote posterior superior endplate fracture of L4 on the left. Mild narrowing of the interspinous space L3-L5 cortical sclerosis and sub cortical cyst formation. Levels are as follows: L1/L2: Mild disc desiccation and height loss. Small disc bulge. No neural foraminal or spinal canal n arrowing. L2/L3: Moderate degenerative disc space height loss with circumferential disc osteophyte complex. Min imal ventral CSF space effacement. Moderate left and mild right neural foraminal narrowing with abutment of the left traversing L3 nerve root. L3/L4: Mild-moderate degenerative disc space height loss. Small circumferential disc osteophyte compl ex. Minimal ventral CSF space effacement. Moderate bilateral neural foraminal narrowing. L4/L5: Mild disc desiccation and height loss. Small circumferential disc osteophyte complex. Mild netta ateral neural foraminal narrowing. No significant spinal canal narrowing. L5/S1: Mild posterior degenerative disc space height loss. Moderate hypertrophic facet arthrosis with small facet joint effusions. There is significant neural foraminal or spinal canal narrowing. Impression: 1. Mild spondylosis lumbar spine without high-grade neural foraminal or spinal canal narrowing. 2. Similar appearance of the L1 burst fracture and retropulsion with mild ventral CSF space effacemen t.
== END 2020-07-06 09:22 | disposition home or self-care (01) ==
LOC: SCSMRI 09:21
PROVIDERS: ATTEND Nurse Practitioner Family
DX: M47.26 Other spondylosis with radiculopathy, lumbar region (principal); M25.562 Pain in left knee; S32.011A Stable burst fracture of first lumbar vertebra, initial encounter for closed fracture
CPT/HCPCS: 72148

== ENCOUNTER 2021-05-29 07:17 | Outpatient (CLI) | payer MEDICARE, BC | END 2021-05-29 07:18 | disposition home or self-care (01) | LOC: NM 07:17 | PROVIDERS: ATTEND Internal Medicine | DX: K21.9 Gastro-esophageal reflux disease without esophagitis (principal); R68.81 Early satiety; D64.9 Anemia, unspecified; K62.89 Other specified diseases of anus and rectum | CPT/HCPCS: 78264; A9541 ==

== ENCOUNTER 2022-10-01 10:52 | Outpatient (CLI) | payer MEDICARE, BC | END 2022-10-01 10:53 | disposition home or self-care (01) | LOC: BICRAD 10:52 | PROVIDERS: ATTEND Anesthesiology Pain Medicine | DX: M25.561 Pain in right knee (principal) ==

== ENCOUNTER 2023-01-05 07:34 | Outpatient (CLI) | payer MEDICARE, BC ==
[2023-01-05] MEDS ORDERED: Iopamidol 370 76% 100 ML VIAL ONE (10:28)
== END 2023-01-05 07:35 | disposition home or self-care (01) ==
LOC: CT 07:34
PROVIDERS: ATTEND Physician Assistant Medical
DX: R15.9 Full incontinence of feces (principal); R68.81 Early satiety; R19.8 Other specified symptoms and signs involving the digestive system and abdomen; K57.30 Diverticulosis of large intestine without perforation or abscess without bleeding; N28.1 Cyst of kidney, acquired; R93.3 Abnormal findings on diagnostic imaging of other parts of digestive tract
CPT/HCPCS: 74177; 82565; Q9967

== ENCOUNTER 2024-07-29 10:04 | Outpatient (CLI) | payer MEDICARE, BC | END 2024-07-29 10:05 | disposition home or self-care (01) | LOC: BICMAMMO 10:04 | PROVIDERS: ATTEND Family Medicine | DX: Z78.0 Asymptomatic menopausal state (principal); M81.0 Age-related osteoporosis without current pathological fracture | CPT/HCPCS: 77080 ==